=== PATIENT | male | born 1980 | race Two or more races ===

== ENCOUNTER 2024-11-27 09:20 | Outpatient (CLI) | payer MEDICAID ==
[2024-11-27 10:48] LABS: INR > 8.0 (0.9-1.15)
== END 2024-11-27 17:00 | disposition home or self-care (01) ==
LOC: LAB 09:20
PROVIDERS: ATTEND Physician Assistant
DX: I63.9 Cerebral infarction, unspecified (principal)
CPT/HCPCS: 36415; 85610

== ENCOUNTER → 2024-12-24 | Outpatient (CLI) | payer MEDICAID ==
[2024-12-24 10:52] LABS: INR 3.21 (0.9-1.15); Prothrombin Time 30.3 sec (9.3-11.8)
== END | disposition home or self-care (01) ==
LOC: LAB 10:06
PROVIDERS: ATTEND Physician Assistant
DX: D68.69 Other thrombophilia (principal); I63.9 Cerebral infarction, unspecified
CPT/HCPCS: 36415; 85610

== ENCOUNTER 2025-02-10 07:53 | Inpatient (IN) | payer MEDICAID ==
[2025-02-09] MEDS: IODIXANOL 320MG/ML 100ML BTL IV ONE (06:46)
[2025-02-09] MEDS: HEPARIN IN NS 1000Units/500mL 1,500 ML ONE (06:46)
[2025-02-10] VITALS (61 sets, daily range): BP systolic 83–163; BP diastolic 43–90; PULSE 68–93; RESP 10–22; TEMP 97.3–97.8; O2SAT 92–100
[~2025-02-10] VITALS: Ht 165.1 cm; Wt 80.9 kg
[2025-02-10] MEDS: VERAPAMIL 2.5MG/ML INJ 2ML VIAL IV ONE ×2 (07:45→08:11)
[2025-02-10] MEDS: ANGIOMAX 250 MG VIAL IV ONE (07:45)
[2025-02-10] MEDS: HEPARIN SODIUM (PORCINE) 5000 UNITS/ML 1ML VIAL ONE (07:45)
[2025-02-10] MEDS: fentaNYL CITRATE 100 MCG/2 ML VL ONE (07:46)
[2025-02-10] MEDS: MIDAZOLAM HCL 2MG/2ML 2ml VIAL (1mg/ml) ONE (07:47)
[2025-02-10] MEDS: LIDOCAINE 2%HCL (LOCAL ANESTH.) INJ 20ML MDV ONE (07:47)
[2025-02-10] MEDS: SODIUM CHL 0.9% 0 ML ONE (07:47)
[~2025-02-10 07:53] MED LIST: ATOR-47 PO; EMPA1TAB PO; ERGO500086 PO; METF-370 PO; METO-158 PO; SACU1TAB7 PO; SPIR25TA8 PO; WARF-115 PO
[2025-02-10] MEDS: IODIXANOL 320MG/ML 100ML BTL IV ONE (07:57)
[2025-02-10] MEDS: ATROPINE SULF 1 MG/10ml SYR ONE ×2 (08:39→08:44)
[2025-02-10] MEDS: HEPARIN DRIP/D5W 100UNITS/ML 250 ML IV ONE (09:49)
[2025-02-10] MEDS ORDERED: NITROGLYCERIN 0.4 MG SL TAB SL PRN ×2 (10:00→11:30)
[2025-02-10] MEDS ORDERED: METOPROLOL TARTRATE 25 MG TAB PO SCH (10:24)
[2025-02-10] MEDS ORDERED: MORPHINE SULFATE 4 MG/ML SYR/VIAL IV PRN (10:30)
--- NOTE | 2025-02-10 11:09 | DVHOP2 ---
Operative Report Procedures performed: Left heart catheterization and bilateral coronary angiogram Temporary pacemaker implantation Balloon pump insertion Moderate sedation lasting 84 minutes Ultrasound guided access Diagnosis: Multivessel coronary artery disease Ischemic cardiomyopathy Complete heart block, in need of temporary pacemaker insertion Cardiac suggestion for management: Manage in unit (ICU) Continue temporary pacing For now, continue balloon pump For now, heparin drip For now, aspirin Transfer to higher level of care for revascularization (CABG) and possible pacemaker implantation Findings: LVEF: 35% LVEDP: 9 mm Hg There was no transaortic valve pressure greater Left main: Left main was coming off the left sinus of Valsalva. It had distal 30% lesion LAD: LAD was LIFE SKILLS COORDINATOR at its ostium/proximal section. Ramus intermedius: Ramus intermedius was a large caliber branching vessel. It had proximal 95% lesion. There were some collaterals to distal section of LAD from distal portion of ramus intermedius. LCX: LCX was coming off the left main. There was a 80% distal LCX lesion. OM1 was a small-caliber vessel. OM2 was a moderate-sized vessel with 80% proximal disease. RCA: RCA was coming off the right sinus of Valsalva and was dominant (produced RPDA) vessel. There was focal 99% proximal RCA disease. There was focal 95% mid RCA disease. Distal RCA had focal section of 80% disease. RPDA only revealed minor luminal irregularities and was patent. Presentation: Patient is a 44-year-old gentleman who presented to the office with dyspnea on exertion. Past medical history includes old history of hypertension, diabetes mellitus, hyperlipidemia, goiter, old history of CVA and also previous history of heart failure. At a point, the patient had LV thrombus which was resolved later on. Old echocardiogram had reported bicuspid aortic valve. EKGs had revealed right bundle branch block. Echocardiogram of November 2024 reported ejection fraction of 30-35%, impaired relaxation of left ventricle ischemic cardiomyopathy, no LV thrombus, mild aortic insufficiency/mitral regurgitation/tricuspid regurgitation. Right ventricular systolic pressure was less than 35 mm Hg. As the patient never had ischemic workup, the patient was sent for cardiac catheterization for ischemic workup. Procedure in detail: After obtaining informed consent, the patient was brought to the director of cath lab. He was prepped and draped in sterile fashion. 2 mg of Versed and 50 mcg of fentanyl were used for moderate sedation (moderate sedation started at 8:29 a.m. and completed at 9:55 a.m.). At 1st we accessed the right radial artery for the procedure. Using Seldinger technique, the right radial artery was accessed and a 6 German slender sheath was inserted into it. 2.5 mg of verapamil and 100 mcg of nitroglycerin were given as a cocktail into right radial sheath. We did use a 5 German tiger catheter to perform right coronary angiography. The same tiger catheter was taken inside the LV to obtain the pressures. It is of note that the patient went to complete heart block (when the catheter went inside the left ventricle). Patient was started on transcutaneous pacing at this point. We did use 6 German JL 3.5 diagnostic catheter to perform left coronary angiography. Blood pressure was remaining low also. At this point we decided to access the femoral vessels. Under ultrasound guidance and use of micropuncture, right femoral vein and artery were accessed. Micropuncture sheath inside the femoral vein was exchanged over a wire to a 6 German femoral sheath. After angiographically proving a good arterial access point in femoral artery, the micropuncture in the femoral artery was exchanged over a wire to 6 German femoral sheath. Temporary pacing wire was taken to the right ventricle and temporary pacing was started. We did use a 6 German pigtail catheter and performed another left heart catheterization (this time we performed left ventriculography to assess the left ventricular systolic function). Recognizing instability of the vital signs and occasions of hypotension, decision was made to proceed with implantation of balloon pump. Over a wire, the 6 German femoral sheath was exchanged to a 7 German femoral sheath. Balloon pump was assembled and inserted to the destination in aorta. There was continued need for temporary pacing at 80 beats per minute. Sheaths and balloon pump were sutured in place. Right radial artery access site was managed by deploying a TR band. Total bleeding was less than 15 mL. There was no dissection/hematoma/perforation. Patient was started on heparin drip. Fluoroscopy time: 9.8 minutes contrast: 65 mL of DIANNA Vergara MD Feb 10, 2025 11:09
[2025-02-10] MEDS ORDERED: MORPHINE SULFATE INJ 2 MG/ml SYRG IV PRN ×2 (11:30)
[2025-02-10] MEDS ORDERED: NITROGLYCERIN 50MG/250ML 250 ML IV SCH (11:45)
[2025-02-10 12:01] LABS: INR 1.08 (0.9-1.15); Partial Thromboplastin Time 67.8 SEC (24.5-34.5); Prothrombin Time 11.4 sec (9.3-11.8)
[2025-02-10] MEDS: HEPARIN DRIP/D5W 100UNITS/ML 250 ML IV SCH ×2 (13:00→20:40)
--- NOTE | 2025-02-10 13:56 | DVHHPRES ---
History of Present Illness Resident Creating Document: FRANCISCO JAVIER CRABTREE RESIDENT Reason for Visit: ACS History of Present Illness Chano is a 44 M patient with a history of hypertension, diabetes mellitus, hyperlipidemia, goiter, old history of CVA and also previous history of heart failure came to the hospital for Scheduled Left heart Cath . He saw the Electric Locomotive Firer/Fireman approximately one week ago with dyspnea on exertion and was scheduled for Left heart Cath today. At a point, the patient had LV thrombus which was resolved later on. Old echocardiogram had reported bicuspid aortic valve. EKGs had revealed right bundle branch block. Echocardiogram of November 2024 reported ejection fraction of 30-35%, impaired relaxation of left ventricle ischemic cardiomyopathy, no LV thrombus, mild aortic insufficiency/mitral regurgitation/tricuspid regurgitation. Right ventricular systolic pressure was less than 35 mm Hg. As the patient never had ischemic workup, the patient was sent for cardiac catheterization for ischemic workup. An angiogram was performed today which revealed: Left main: Left main was coming off the left sinus of Valsalva. It had distal 30% lesion LAD: LAD was PUBLIC POLICY PROFESSOR at its ostium/proximal section. Ramus intermedius: Ramus intermedius was a large caliber branching vessel. It had proximal 95% lesion. There were some collaterals to distal section of LAD from distal portion of ramus intermedius. LCX: LCX was coming off the left main. There was a 80% distal LCX lesion. OM1 was a small-caliber vessel. OM2 was a moderate-sized vessel with 80% proximal d isease. RCA: RCA was coming off the right sinus of Valsalva and was dominant (produced RPDA) vessel. There was focal 99% proximal RCA disease. There was focal 95% mid RCA disease. Distal RCA had focal section of 80% disease. RPDA only revealed minor luminal irregularities and was patent. Electric Locomotive Firer/Fireman Dr Coats recommended for CABG. Patient will be transferred to [facility] for CABG, Social service consulted Medical History - Stroke - Diabetes mellitus - Hypertension - Hyperlipidemia - Heart disease Surgical History - Multiple surgeries due to left leg fracture in 2005 Social History - Substance Use: Denies smoking, Drinking Etoh and Drug abuse Review of Systems Review of Systems CONSTITUTIONAL: Denies weight loss, fever and chills. HEENT: Denies changes in vision and hearing. RESPIRATORY: Denies SOB and cough. CV: Denies palpitations and chest pain. GI: Denies abdominal pain, nausea, vomiting and diarrhea. : Denies dysuria and urinary frequency. MSK: Denies myalgia and joint pain. SKIN: Denies rash and pruritus. NEUROLOGICAL: Denies headache Allergies: Coded Allergies: NO KNOWN ALLERGIES (Unverified , 02/10/25) Medications Current Medications Medications Dose Ordered Sig/Mario Route Start Time Stop Time Status Last Admin Dose Admin Nitroglycerin 0.4 mg Q5MINP PRN SL 02/10/25 10:00 Cancel Morphine Sulfate 2 mg Q30M PRN IV 02/10/25 10:30 Cancel Atorvastatin Calcium 40 mg HS PO 02/10/25 22:00 Cancel Metoprolol Tartrate 25 mg DAILY PO 02/10/25 10:24 Cancel Ticagrelor 90 mg BID PO 02/11/25 10:00 Cancel Aspirin 81 mg DAILY PO 02/11/25 10:00 Cancel Heparin Sodium/ Dextrose 250 ml @ 10 mls/hr Q24H IV 02/10/25 12:30 02/10/25 13:00 10 MLS/HR Morphine Sulfate 2 mg Q4HPRN PRN IV 02/10/25 11:30 Nitroglycerin 0.4 mg Q5MINP PRN SL 02/10/25 11:30 Morphine Sulfate 2 mg Q30M PRN IV 02/10/25 11:30 Nitroglycerin 250 ml @ 1.5 mls/hr Q24H IV 02/10/25 11:45 Exam Vital Signs Vital Signs Date Time Temp Pulse Resp B/P (MAP) Pulse Ox O2 Delivery O2 Flow Rate FiO2 02/10/25 13:30 85 12 128/58 (81) 98 02/10/25 12:00 97.4 97.4 Exam GENERAL: Not in acute distress. HEENT: EOMI, Moist mucous membranes. No scleral icterus. No cervical lymphadenopathy. LUNGS: Clear to auscultation bilaterally. No accessory muscle use. CARDIOVASCULAR: Regular rate and rhythm. No murmur. No JVD. ABDOMEN: Soft, nontender and nondistended. No palpable masses. EXTREMITIES: No edema. Nontender. SKIN: No rashes or lesions. Warm. NEUROLOGIC: Alert and oriented X3 Labs/Xrays Labs Test 02/10/25 13:16 02/10/25 11:32 Range/Units POC Glucose 164 H 70-106 mg/dl Prothrombin Time 11.4 9.3-11.8 sec Prothrombin Time INR 1.08 0.9-1.15 Activated Partial Thromboplast Time 67.8 H 24.5-34.5 SEC SEPSIS Sepsis Screen Physician Orders Cl Coronary Cath W/O Lhc (02/10/25 07:54) Cl Left Heart Cath (02/10/25 07:55) * Hospitalist Consult (02/10/25 ) * Watcher [facility] Consult (02/10/25 ) Platelet Monitoring (02/10/25 11:17) Heparin Per Standardized Proce (02/10/25 11:17) Discontinue All Im Injections (02/10/25 11:17) Heparin Drip/D5w 100units/Ml (02/10/25 12:30) Stat Ekg For Chest Pain (02/10/25 11:17) Admit (02/10/25 11:28) Code Status (02/10/25 11:28) Morphine Sulfate Injection (02/10/25 11:30) Nitroglycerin Sublingual (Ntrostat Subli (02/10/25 11:30) Morphine Sulfate Injection (02/10/25 11:30) Oxygen By Nasal Cannula (02/10/25 11:28) Stat Ekg For Chest Pain (02/10/25 11:28) Notify Md Of Changes From Base (02/10/25 11:28) Nitroglycerin 50mg/250ml (Tridil) (02/10/25 11:45) Post Cath Vital Signs Q 15min (02/10/25 10:12) Post Cath Activity Protocol (02/10/25 10:12) Hold All Metformin For 48 Hour (02/10/25 11:33) Flat In Bed (02/10/25 11:33) Echo 2d Mode Cardiac Dop (02/10/25 11:33) Transfer Orders (02/10/25 11:40) Complete Blood Count (02/10/25 12:14) Vital Signs Date Time Temp Pulse Resp B/P (MAP) Pulse Ox O2 Delivery O2 Flow Rate FiO2 02/10/25 13:30 85 12 128/58 (81) 98 02/10/25 13:15 80 14 93/50 (64) 99 02/10/25 13:15 80 02/10/25 13:00 80 02/10/25 13:00 80 18 100/50 (67) 98 02/10/25 12:45 80 02/10/25 12:45 80 18 100/50 (67) 98 02/10/25 12:30 80 18 102/49 (66) 98 02/10/25 12:30 80 02/10/25 12:15 92 02/10/25 12:15 81 12 125/59 (81) 99 02/10/25 12:00 97.4 81 11 131/71 (91) 99 97.4 02/10/25 12:00 82 02/10/25 11:45 81 02/10/25 11:30 84 02/10/25 11:15 82 02/10/25 11:00 86 02/10/25 11:00 84 12 147/66 (93) 100 02/10/25 10:45 93 02/10/25 10:30 84 02/10/25 10:15 97.3 80 16 147/76 (99) 99 97.3 02/10/25 10:13 80 Medications Medications Dose Ordered Sig/Mario Route Start Time Stop Time Status Last Admin Dose Admin Heparin Sodium/ Dextrose 250 ml @ 10 mls/hr Q24H IV 02/10/25 12:30 02/10/25 13:00 10 MLS/HR Assessment/Plan Assessment/Plan # Multivessel coronary artery disease # Ischemic cardiomyopathy # Complete heart block, in need of temporary pacemaker insertion Findings: LVEF: 35% LVEDP: 9 mm Hg - Cardiology consultation appreciated, Angiogram done and recommended for - Manage in unit (ICU) - Continue temporary pacing -continue balloon pump - heparin drip - aspirin - Transfer to higher level of care for revascularization (CABG) and possible pac emaker implantation # DM Type II - Monitor Blood glucose - SS insulin # Hypertension - Monitor BP # Hyperlipidemia - Continue Atorvastatin # H/O CVA Advanced goal of care discussed with patient for 23 minutes: Full Code Critical Care time spent 62 minutes including patient care, chart review and updating family, excluding procedure. Plan discussed with Dr. Brandt Plan discussed with: Patient My Orders Orders - FRANCISCO JAVIER CRABTREE RESIDENT Procedure Category Date Status Time Admit ADMIT 02/10/25 Transmitted 11:28 Code Status CODE 02/10/25 Transmitted 11:28 Morphine Sulfate PHA 02/10/25 In Process Injection 11:30 Nitroglycerin PHA 02/10/25 In Process Sublingual (Ntrostat 11:30 Morphine Sulfate PHA 02/10/25 In Process Injection 11:30 Oxygen By Nasal RT 02/10/25 Transmitted Cannula 11:28 Stat Ekg For Chest EKTA 02/10/25 In Process Pain 11:28 Notify Md Of Changes EKTA 02/10/25 In Process From Base 11:28 Visit Coding STANDARD RES Billing Provider: DIONNA BRANDT MD Date of Service if different f: Feb 10, 2025 Common Visit Codes: 19140-[id number] CARE 30-74 MIN FRANCISCO JAVIER CRABTREE RESIDENT Feb 10, 2025 13:56 DIONNA BRANDT MD Feb 11, 2025 11:34
--- NOTE | 2025-02-10 14:07 | CONS ---
Pharmacy Clinical Information: INITIAL HEPARIN RATE @10 ML/HR AND NO BOLUS FROM PHARMACY PER RX PROTOCOL. NEXT APTT AKUA @1900 ON 02/10 PER MELANIA RN (FROM [facility]), THERE IS NO WAY TO GET PT'S CURRENT WEIGHT VIA BEDSCALE OR STANDING SCALE SINCE PT WILL SOON BE TX TO ANOTHER FACILITY. WT ENTER IN SYSTEM IS FROM 02/04 AND NO OTHER PAST WEIGHT EXIST. IQRA FIERRO PHARMACIST Feb 10, 2025 14:06
--- NOTE | 2025-02-10 15:19 | DVHINCON2 ---
Date of service: Feb 10, 2025 History of Present Illness HPI Patient is a 44-year-old gentleman who originally presented to the hospital for elective cardiac catheterization. He was diagnosed with systolic heart failure and was sent for ischemic workup/cardiac catheterization. Home Meds Reported Medications Atorvastatin Calcium (ATORVASTATIN CALCIUM) 80 Mg Tab, 1 TAB PO DAILY for HIGH CHOLESTEROL, #30 TAB 5 Refills 02/03/25 Ergocalciferol (Vitamin D (Ergocalciferol) 50,000 Unit Cap, 87125 UNIT PO QWEEKLY for MONDAYS, CAP 02/03/25 Metoprolol Tartrate (Metoprolol Tartrate) 50 Mg Tab, 50 MG PO DAILY for HTN for 30 Days, MG 02/03/25 Spironolactone (Spironolactone) 25 Mg Tab, 1 TAB PO DAILY for HTN, #90 TAB 1 Refill 02/03/25 Metformin Hydrochloride (Metformin Hcl) 500 Mg Tab, 500 MG PO IBID for DIABETES for 30 Days, MG 02/03/25 Sacubitril-Valsartan (Entresto 49-51 mg) 1 Tab Tab, 1 TAB PO DAILY for HTN, TAB 02/03/25 Empagliflozin (Jardiance) 10 Mg Tab, 10 MG PO DAILY for Diabetes/ Stop on 02/05/25, TAB 02/03/25 Warfarin Sodium (Warfarin Sodium) 10 Mg Tab, 10 MG PO DAILY for s/p cva- Stop on 02/05/25, TAB 02/03/25 Past Medical History Others Past medical history includes diabetes mellitus, hypertension, hyperlipidemia, goiter, old history of CVA (good functional capacity), old history of bicuspid aortic valve (old echocardiogram) and also history of systolic heart failure/LV thrombus. Repeat echocardiogram had revealed resolved LV thrombus. Patient was on Coumadin as outpatient because of history of LV thrombus. Smoker: Quit Alocohol: None Review of Systems Constitutional: Weakness Ears, Nose, & Throat: No symptom reported Eyes: No symptom reported Pulmonary/Respiratory: Dyspnea Cardiovascular: Palpitations, Lt Headedness All Other Systems 14 point review of system was performed. Relevant findings as per above and as per HPI. Otherwise negative. H&P Exam Vital Signs Vital Signs Date Time Temp Pulse Resp B/P (MAP) Pulse Ox O2 Delivery O2 Flow Rate FiO2 02/10/25 15:00 80 14 83/50 (61) 97 02/10/25 12:00 97.4 97.4 General Appeara: Well developed Head Exam: Normal inspection Eye Exam: bilateral eye PERRL Pulmonary/Respiratory: Lungs clear Cardiovascular/Chest: Regular rate, Systolic murmur Peripheral Pulses: 2+ carotid (R), 2+ carotid (L), 2+ femoral (R), 2+ femoral (L) Abdominal Exam: Normal bowel sounds, Soft Neuro/Mental St: Alert, Oriented Appearance: Appropriate appearance Eye contact/ Speech: Cooperative Labs/Xrays Labs Test 02/10/25 13:16 02/10/25 11:32 Range/Units POC Glucose 164 H 70-106 mg/dl Prothrombin Time 11.4 9.3-11.8 sec Prothrombin Time INR 1.08 0.9-1.15 Activated Partial Thromboplast Time 67.8 H 24.5-34.5 SEC Assessment/Plan Plan Patient is a 44-year-old gentleman who originally presented to the hospital for elective cardiac catheterization. He was diagnosed with systolic heart failure and was sent for ischemic workup/cardiac catheterization. Left heart catheterization was performed and the patient was found to have multivessel coronary artery disease. Patient did have occasions of complete heart block and was started on temporary/transvenous pacemaker As the blood pressure was low, balloon pump was inserted. To be transferred to higher level of care for further evaluation and management (bypass surgery/possible pacemaker implantation) Lying flat in bed. Not using accessory muscles of breathing. No carotid bruit. Lungs are clear to auscultation. Cardiac: Regular, no thrill/gallop. Abdomen is soft. Bowel sound is positive. 1 +edema bilaterally. Past medical history includes diabetes mellitus, hypertension, hyperlipidemia, goiter, old history of CVA (good functional capacity), old history of bicuspid aortic valve (old echocardiogram) and also history of systolic heart failure/LV thrombus. Repeat echocardiogram had revealed resolved LV thrombus. Patient was on Coumadin as outpatient because of history of LV thrombus. Echocardiogram of November 10, 2024 (performed in the office) revealed ejection fraction of 30-35%, impaired relaxation of left ventricle, wall motion abnormality, mild aortic insufficiency/mitral regurgitation/tricuspid regurgitation. There was no LV thrombus. Right ventricular systolic pressure was less than 35 mm Hg Left heart catheterization was performed which revealed multivessel coronary artery disease. Patient had complete heart block and temporary/transvenous pacemaker was implanted. As the patient's blood pressure was low, balloon pump was inserted. Patient was started on heparin drip Assessment: 44-year-old gentleman with history of old CVA (good functional capacity) and systolic heart failure, had left heart catheterization and was found to have multivessel coronary artery disease. Has been off Coumadin on preparation for left heart catheterization. Is started on heparin drip. Coronary artery disease Multivessel coronary artery disease Complete heart block, status post transvenous/temporary pacemaker implantation Diabetes mellitus Old history of CVA Hypertension Hyperlipidemia Cardiac suggestion for management: Manage in ICU Follow-up electrolytes and kidney function tests and correct abnormalities Echocardiogram For now: Continue heparin drip On balloon pump Transvenous/temporary pacemaker management For now: Daily aspirin Transfer to high level of care for CABG and possible pacemaker implantation Make sure that images of the left heart catheterization is sent with the patient to higher level of care Further evaluation and management depends on the above and clinical course Thank you for consultation A total of 75 minutes was spent reviewing the patient record, examining the patient, making a diagnostic and therapeutic plan, discussing this plan with medical personnel, following up on diagnostic studies and following the patient for clinical stability excluding any and all procedures. At least 50% of this time was spent in direct, [id number] contact. Thank you for allowing me to participate in this patient's care. Further recommendations will depend on patient's clinical course. Please do not hesitate to contact me if you have any questions or concerns. This medical document was created using electronic medical record system with [employer] computerized dictation system. Although this document has been carefully reviewed, there may still be some phonetic and typographical errors. These areas are purely typographical due to the imperfection of the software programs, and do not reflect any compromise in the patient's medical care. Plan discussed with: Patient, Other (nurse) DIANNA DURAND MD Feb 10, 2025 15:18
[2025-02-10] MEDS ORDERED: DEXTROSE (50%) 50ML SYRG IV PRN (17:00)
[2025-02-10] MEDS: ACCU-CHEK COMFORT CURVE STRIP VI SCH (17:51)
--- NOTE | 2025-02-10 17:54 | DVHSR ---
APPROVED REPORT EXAM: Two-dimensional and M-mode echocardiogram with Doppler and color Doppler. Blood Pressure: 100/50 mmHg INDICATION CAD BRIEF HISTORY Cardiac Disease: RISK FACTORS Obesity: Height: 5'5, Weight: 180 DIMENSIONS LVDd 4.9 (3.8-5.7cm) LA (2D) 3.6 (1.9-4.0cm) Aortic Root 3.2 (2.0-3.7cm) LVDs 3.9 (2.5-4.0cm) LA (MM) (1.9-4.0cm) Aortic Cusp Exc 1.3 (1.5-2.0cm) EF (%) 34.0 (55-70%) Rt. Atrium 2.8 (1.9-4.0cm) Asc. Aorta 3.4 cm IVSd 0.8 (0.7-1.1cm) RV (D) 3.5 (1.8-2.4cm) PWd 0.9 (0.7-1.1cm) Mitral Valve Mitral Mitral Stenosis E wave 0.53m/s MV Mean GR. mmHg A wave 0.93m/s MV Peak GR. mmHg E/A ratio 0.6 2D MVA cm2 DECEL Time 127ms PRESS 1/2 Time ms Aortic Valve Aortic Valve Aortic Stenosis V1 0.63m/s AO Mean GR. 4mmHg V2 1.31m/s AO Peak GR. 6mmHg LVOT Diameter 2.1 (1.8-2.4cm) Doppler TORY 1.66cm2 Pulmonic Valve V2 1.65m/s Other Information Quality : Technically Limited Rhythm : Technically limited study due to pt layiing down flat unable to move. Conclusion Left ventricle: LVEF was 35-40%. Anterior/anteroseptal and apical akinesia was observed. Ischemic cardiomyopathy. Abnormal relaxation of left ventricular diastolic function was observed. Right ventricle was not well visualized. Both atria were normal-sized. Aortic valve was not well visualized. There is question about bicuspid aortic valve. There was no aortic stenosis/insufficiency. Trace mitral/tricuspid regurgitation was observed. Pulmonary valve was not well visualized. There was no pulmonary valve insufficiency There was no pericardial effusion. As there was no good tricuspid regurgitation jet, right ventricular systolic pressure could not be estimated.
[2025-02-10] MEDS: SODIUM CHLORIDE 0.9% 250 ML IV ONE (18:22)
[2025-02-10] MEDS: InsuLIN REG 1unit/0.01ml Soln (100units/ml) SC SCH (18:30)
[2025-02-10] MEDS: SODIUM CHLORIDE 0.9% 1,000 ML IV SCH (18:30)
[2025-02-10 18:56] LABS: Urine Protein, UAD 1+ (Negative)
[2025-02-10 19:21] LABS: Hematocrit 35.6 % (41.0-53.0); Hemoglobin 12.0 g/dL (13.5-17.5); Mean Corpuscular Hemoglobin 28.2 pg (28.0-32.0); Mean Corpuscular Volume 83.6 fL (80.0-100.0); Nucleated Red Blood Cells % 0.1 %
[2025-02-10 19:39] LABS: INR 1.08 (0.9-1.15); Partial Thromboplastin Time 49.2 SEC (24.5-34.5); Prothrombin Time 11.4 sec (9.3-11.8)
[2025-02-10 19:42] LABS: Alanine Aminotransferase 14 U/L (7-40); Albumin 3.5 g/dL (3.2-4.8); Alkaline Phosphatase 92 U/L (46-116); Anion Gap 10 (5-15); BUN/Creatinine Ratio 28.1 (10.0-20.0); Carbon Dioxide 23 mmol/L (20-31); Chloride 104 mmol/L (98-107); Potassium 4.2 mmol/L (3.5-5.1); Sodium 137 mmol/L (136-145); Total Protein 6.0 g/dL (5.7-8.2)
[2025-02-10 19:43] LABS: Bilirubin, Total 0.6 mg/dL (0.2-1.0)
[2025-02-10 19:44] LABS: Blood Urea Nitrogen 25 mg/dL (9-23); Calcium 8.4 mg/dL (8.7-10.4); Glucose 175 mg/dL (74-106); Magnesium 1.6 mg/dL (1.6-2.6)
[2025-02-10 21:44] LABS: Amphetamine Screen, Urine Neg (NEGATIVE); Barbiturate Scree,Urine Neg (NEGATIVE); Benzodiazephine Screen, Urine Pos (NEGATIVE); Cannabinoid Screen, Urine Neg (NEGATIVE); Cocaine Screen, Urine Neg (NEGATIVE); Opiate Scree,Urine Neg (NEGATIVE); Phencyclidine Screen, Urine Neg (NEGATIVE)
[2025-02-10] MEDS ORDERED: ATORVASTATIN 20 MG TAB PO SCH (22:00)
[2025-02-10] MEDS: ATORVASTATIN 20 MG TAB PO SCH (23:11)
[2025-02-11 00:29] VITALS: BP 145/93; PULSE 83; RESP 19; TEMP 97.8; O2SAT 97
--- NOTE | 2025-02-11 08:25 | DVHDSRES ---
Discharge Summary Date of Admission Resident Creating Document: FRANCISCO JAVIER CRABTREE RESIDENT Feb 10, 2025 at 11:28 Date of Discharge: Feb 10, 2025 Admitting Diagnosis Multivessel coronary artery disease Labs/Diagnostic Data: Laboratory Results Test 02/10/25 23:14 02/10/25 19:04 02/10/25 18:26 POC Glucose 143 mg/dl (70-106) White Blood Count 10.3 10^3/uL (4.4-10.8) Red Blood Count 4.26 10^6/uL (4.5-5.90) Hemoglobin 12.0 g/dL (13.5-17.5) Hematocrit 35.6 % (41.0-53.0) Mean Corpuscular Volume 83.6 fL (80.0-100.0) Mean Corpuscular Hemoglobin 28.2 pg (28.0-32.0) Mean Corpuscular Hemoglobin Concent 33.7 g/dL (32.0-36.0) Red Cell Distribution Width 14.4 % (11.8-14.3) Platelet Count 289 10^3/uL (140-450) Mean Platelet Volume 7.5 fL (6.9-10.8) Neutrophils (%) (Auto) 55.2 % (37.0-80.0) Lymphocytes (%) (Auto) 31.6 % (10.0-50.0) Monocytes (%) (Auto) 9.9 % (0.0-12.0) Eosinophils (%) (Auto) 2.6 % (0.0-7.0) Basophils (%) (Auto) 0.7 % (0.0-2.0) Neutrophils # (Auto) 5.7 10 ^3/uL (1.6-8.6) Lymphocytes # (Auto) 3.2 10 ^3/uL (0.4-5.4) Monocytes # (Auto) 1.0 10 ^3/uL (0-1.3) Eosinophils # (Auto) 0.3 10 ^3/uL (0-0.8) Basophils # (Auto) 0.1 10 ^3/uL (0-0.2) Nucleated Red Blood Cells 0.1 % Prothrombin Time 11.4 sec (9.3-11.8) Prothrombin Time INR 1.08 (0.9-1.15) Activated Partial Thromboplast Time 49.2 SEC (24.5-34.5) Sodium Level 137 mmol/L (136-145) Potassium Level 4.2 mmol/L (3.5-5.1) Chloride Level 104 mmol/L (98-107) Carbon Dioxide Level 23 mmol/L (20-31) Anion Gap 10 (5-15) Blood Urea Nitrogen 25 mg/dL (9-23) Creatinine 0.89 mg/dL (0.700-1.30) Glomerular Filtration Rate Calc 108 mL/min (>90) BUN/Creatinine Ratio 28.1 (10.0-20.0) Serum Glucose 175 mg/dL (74-106) Hemoglobin A1c 7.9 % A1C (<5.7) Calcium Level 8.4 mg/dL (8.7-10.4) Magnesium Level 1.6 mg/dL (1.6-2.6) Total Bilirubin 0.6 mg/dL (0.2-1.0) Aspartate Amino Transferase (AST) 14 U/L (13-40) Alanine Aminotransferase (ALT) 14 U/L (7-40) Alkaline Phosphatase 92 U/L (46-116) Total Protein 6.0 g/dL (5.7-8.2) Albumin 3.5 g/dL (3.2-4.8) Urine Color Yellow (Yellow) Urine Clarity Clear (Clear) Urine pH 6.0 (5.0-9.0) Urine Specific [place] > 1.050 (1.001-1.035) Urine Protein 1+ (Negative) Urine Ketones Trace (Negative) Urine Blood Trace /uL (Negative) Urine Nitrite Negative (Negative) Urine Bilirubin Negative (Negative) Urine Urobilinogen Normal mg/dL (Negative) Urine Leukocyte Esterase Negative /uL (Negative) Urine RBC <1 /hpf (0 - 3) Urine Microscopic WBC 3 /HPF (0-3) Urine Squamous Epithelial Cells Few /hpf (<5) Urine Bacteria Few /hpf (None Seen) Urine Mucus Few (None Seen) Urine Glucose 3+ mg/dL (Normal) Urine Opiates Screen Neg (NEGATIVE) Urine Fentanyl Screen Pos (NEGATIVE) Urine Barbiturates Screen Neg (NEGATIVE) Urine Phencyclidine Screen Neg (NEGATIVE) Urine Amphetamines Screen Neg (NEGATIVE) Urine Benzodiazepines Screen Pos (NEGATIVE) Urine Cocaine Screen Neg (NEGATIVE) Urine Cannabinoids Screen Neg (NEGATIVE) Other Laboratory Tests 12/10/25 19:04 Brief Hx & Hospital Course: Chano is a 44 M patient with a history of hypertension, diabetes mellitus, hyperlipidemia, goiter, old history of CVA and also previous history of heart failure came to the hospital for Scheduled Left heart Cath . He saw the [facility] approximately one week ago with dyspnea on exertion and was scheduled for Left heart Cath today. At a point, the patient had LV thrombus which was resolved later on. Old echocardiogram had reported bicuspid aortic valve. EKGs had revealed right bundle branch block. Echocardiogram of November 2024 reported ejection fraction of 30-35%, impaired relaxation of left ventricle ischemic cardiomyopathy, no LV thrombus, mild aortic insufficiency/mitral regurgitation/tricuspid regurgitation. Right ventricular systolic pressure was less than 35 mm Hg. As the patient never had ischemic workup, the patient was sent for cardiac catheterization for ischemic workup. An angiogram was performed today which revealed: Left main: Left main was coming off the left sinus of Valsalva. It had distal 30% lesion LAD: LAD was TREE DEADENER at its ostium/proximal section. Ramus intermedius: Ramus intermedius was a large caliber branching vessel. It had proximal 95% lesion. There were some collaterals to distal section of LAD from distal portion of ramus intermedius. LCX: LCX was coming off the left main. There was a 80% distal LCX lesion. OM1 was a small-caliber vessel. OM2 was a moderate-sized vessel with 80% proximal disease. RCA: RCA was coming off the right sinus of Valsalva and was dominant (produced RPDA) vessel. There was focal 99% proximal RCA disease. There was focal 95% mid RCA disease. Distal RCA had focal section of 80% disease. RPDA only revealed minor luminal irregularities and was patent. [facility] recommended for CABG. Patient will be transferred to [facility] for CABG, Social service consulted. Patient was accepted to [facility] for CABG, patient went to [facility] with relatively stable condition. critical care time is 62 Consults/Reason for consult Cardiology for CAD Condition at Discharge: Fair Final Diagnosis/Problems List # Multivessel coronary artery disease # Ischemic cardiomyopathy # Complete heart block, in need of temporary pacemaker insertion # DM Type II # Hypertension # Hyperlipidemia # H/O CVA Discharge Disposition: Acute Care Facility SNF Discharge Will this Physician continue t: No Discharge Instruct/Medications Scheduled Atorvastatin Calcium (Atorvastatin Calcium), 1 TAB PO DAILY, (Reported) Empagliflozin (Jardiance), 10 MG PO DAILY, (Reported) Ergocalciferol (Vitamin D (Ergocalciferol), 50,000 UNIT PO QWEEKLY, (Reported) Metformin Hydrochloride (Metformin Hcl), 500 MG PO IBID, (Reported) Metoprolol Tartrate (Metoprolol Tartrate), 50 MG PO DAILY, (Reported) Sacubitril-Valsartan (Entresto 49-51 mg), 1 TAB PO DAILY, (Reported) Spironolactone (Spironolactone), 1 TAB PO DAILY, (Reported) Warfarin Sodium (Warfarin Sodium), 10 MG PO DAILY, (Reported) Discharge Statement: "Patient was advised to return to the ER or call 911 if any headaches, dizziness, shortness of breath, chest pain, abdominal pain, bleeding, fevers, or worsening of medical condition. Patient was counseled about treatment plan, medications, possible side effects, patientverbalized understanding. All questions were answered to the best of my ability. This discharge took greater then 30 minutes in planning, reviewing documentation, counseling the patient, and discussing with other team members." ASSESSMENT ASSESSMENT Assessment ACUTE CORONARY SYNDROME Visit Coding STANDARD RES Billing Provider: DIONNA BRANDT MD Date of Service if different f: Feb 11, 2025 Common Visit Codes: 10498-[id number] CARE 30-74 MIN FRANCISCO JAVIER CRABTREE RESIDENT Feb 11, 2025 08:25 DIONNA BRANDT MD Feb 11, 2025 11:35
[2025-02-11] MEDS ORDERED: TICAGRELOR 90 MG TAB PO SCH (10:00)
== END 2025-02-11 00:07 | disposition short-term general hospital (02) | DRG 177 ==
LOC: CATH 07:53 → OVERFLOW 11:28 → ICU WEST 17:51
PROVIDERS: ADMIT Internal Medicine; ATTEND Internal Medicine Cardiovascular Disease
PROC: 5A02210 Assistance with Cardiac Output using Balloon Pump, Continuous (ICD-10-PCS; principal; 2025-02-10)
PROC: 02HK3JZ Insertion of Pacemaker Lead into Right Ventricle, Percutaneous Approach (ICD-10-PCS; 2025-02-10)
PROC: 4A023N7 Measurement of Cardiac Sampling and Pressure, Left Heart, Percutaneous Approach (ICD-10-PCS; 2025-02-10)
PROC: B211YZZ Fluoroscopy of Multiple Coronary Arteries using Other Contrast (ICD-10-PCS; 2025-02-10)
PROC: B215YZZ Fluoroscopy of Left Heart using Other Contrast (ICD-10-PCS; 2025-02-10)
PROC: 5A1223Z Performance of Cardiac Pacing, Continuous (ICD-10-PCS; 2025-02-10)
DX: I25.10 Atherosclerotic heart disease of native coronary artery without angina pectoris (principal); I44.2 Atrioventricular block, complete; I11.0 Hypertensive heart disease with heart failure; E11.9 Type 2 diabetes mellitus without complications; Q23.81 Bicuspid aortic valve; I25.5 Ischemic cardiomyopathy; E78.5 Hyperlipidemia, unspecified; I50.22 Chronic systolic (congestive) heart failure; I45.10 Unspecified right bundle-branch block; Z86.73 Personal history of transient ischemic attack (TIA), and cerebral infarction without residual deficits; Z79.84 Long term (current) use of oral hypoglycemic drugs; Z79.899 Other long term (current) drug therapy; Z87.891 Personal history of nicotine dependence
CPT/HCPCS: 33210; 33967; 36415; 80053; 80307; 81001; 82962; 83036; 83735; 85025; 85610; 85730; 87081; 87086; 93306; 93458; 99152; A4344; C1751; C1894; G0378; J1815; J2250; Q9967